=== PATIENT | female | born 1960 | race Caucasian/White ===

== ENCOUNTER 2023-12-09 02:10 | Observation (INO) | payer OTHER ==
--- OUTSIDE RECORDS SUMMARY | 2023-12-09 02:14 | XMS REPORT | Continuity of Care Document ---
Author Name Unknown Address [address] [facility] [address] [place] [address] [facility] thconnect Address [address] [facility] [place] [address] Care Team Providers Care Audograph Operator Name Role Phone PCP, PATIENT DOES NOT HAVE A Primary Care Physic maryam Unavailable BASIA LEMON Attending Clinician Unavailab ciro IRENE Attending Clinician Unavailable MD AME Attending Clinician Unavailab NOLBERTO Chung Attending Clinician Unavailable SAVAGE VERAS Attending Clinician Unavailable Savage Veras MD Attending Clinician [phone] BENNIE WINCHESTER Attending Clinician Unavailable Bennie Santillan Attending Clinician [phone] SAVAGE VERAS Admitting Clinician Unavailable BENNIE WINCHESTER Admitting Clinician Unavailable Payers Payer Name Policy Type Policy Number Effective Date Expirati on Date Source [employer] MP [address] ON/OFF 9 [id number] 2023 00:00:00 [employer] COMM[employer] OUT OF NETWORK [id number] 2022 00:00:00 Problems Condition Name Condition Details Condition Category Status Onset Date Resolution Date Last Treatment Date Treating Clinician Comments Source Encounter for screening for diabetes mellitus Encounter for screening for diabetes mellitus Disease Active 07-13 00:00: 00 Maria Isabel kohli Family history of hyperlipid emia Family history of hyperlipid emia Disease Active 07-13 00:00: 00 Maria Isabel kohli Family history of thyroid disease Family history of thyroid disease Disease Active 07-13 00:00: 00 Maria Isabel Radera kamilla Tobacco use disorder Tobacco use disorder Disease Active 06-12 00:00: 00 Maria Isabel kohli Persistent asthma with acute exacerbati on (HHS-HCC) Persistent asthma with acute exacerbati on (HHS-HCC) Disease Active 05-27 00:00: 00 Maria Isabel Radera kamilla COPD with acute exacerbati on (multi HCC) COPD with acute exacerbati on (multi HCC) Disease Active 05-27 00:00: 00 Maria Isabel Radera kamilla No known active problems No known active problems Disease [facility] Allergies, Adverse Reactions, Alerts Allergy Name Allergy Type Status Severity Reaction(s) Onset Date Inactive Date Treating Clinician Comments Source Azithrom ycin Dihydrat e Propensi ty to adverse reaction s Active Nausea and Vomiting 06-11 00:00: 00 Maria Isabel kohli NO KNOWN ALLERGIE S Drug Class Active [facility] Social History Social Habit Start Date Stop Date Quantity Comments Source Gender identity [facility] History of tobacco use Cigarette Smoker Maria Isabel bull - External Sexual orientation Elio Martinez - External Alcoholic beverage intake 2023-07-14 00:00:00 2023-07-14 00:00:00 Current drinker of alcohol (finding) Maria Isabel Martinez - External Alcohol intake 2023-06-13 00:00:00 2023-06-13 00:00:00 Current drinker of alcohol (finding) Maria Isabel Martinez - External Tobacco use and exposure 2023-06-12 00:00:00 2023-06-12 00:00:00 Smokeless tobacco non-user Maria Isabel Martinez - External History of Social function 2023-06-12 00:00:00 2023-06-12 00:00:00 Maria Isabel Martinez - External Sex assigned at 1960 00:00:00 1960 00:00:00 Maria Isabel Guerra Smoking Status Start Date Stop Date Source Tobacco smoking consumption unknown Maria Isabel Floresfidelina Mal[place] Smokes tobacco daily 2023-06-12 00:00:00 Maria Isabel fidelina Guerra Medications Ordered Medication Name Filled Medication Name Start Date Stop Date Current Medication? Ordering Clinician Indication Dosage Frequency Signature (SIG) Comments Components Source Beclomethas one Diprop (Qvar RediHaler) 40 MCG/ACT inhalation AEROSOL, BREATH ACTIVATED 07-13 00:00: 00 Yes 2{inhal ation} Inhale 2 Inhalation s into the lungs daily. Maria Isabel kohli Oxybutynin Chloride 10 MG oral TABLET SR 24 HR 07-13 00:00: 00 Yes [id number] 10mg Take 1 tablet (10 mg total) by mouth daily. Maria Isabel kohli Albuterol HFA 108 (90 Base) MCG/ACT IN AERS 06-12 00:00: 00 Yes [id number] 2{puff} Q.25D Inhale 2 puffs into the lungs every 6 hours as needed for wheezing. Maria Isabel kohli Benzonatate 200 MG oral Capsule 06-12 00:00: 00 Yes [id number] 200mg Q.[id number] 3D Take 1 capsule (200 mg total) by mouth 3 times daily as needed for cough. Maria Isabel kohli Albuterol (PROVENTIL) (2.5 MG/3ML) 0.083% inhalation Inhalant Solution 06-12 00:00: 00 07-13 04:59 :00 No [id number] 2.5mg Q.25D Take 2.5 mg by nebulizati on every 6 hours as needed for wheezing. Maria Isabel kohli predniSONE (DELTASONE) 10 MG oral tablet 06-12 00:00: 00 07-13 00:00 :00 No [id number] 10mg Take 1 tablet (10 mg total) by mouth daily Take 10 mg for 5 days then half tab 5 mg for 2 days. Please take with food.. Maria Isabel kohli Albuterol HFA 108 (90 Base) MCG/ACT IN AERS 05-27 00:00: 00 Yes [id number] 2{puff} Q.25D Inhale 2 puffs into the lungs every 6 hours as needed for wheezing. Maria Isabel kohli Benzonatate 200 MG oral Capsule 05-27 00:00: 00 Yes [id number] 200mg Q.[id number] 3D Take 1 capsule (200 mg total) by mouth 3 times daily as needed for cough. Maria Isabel kohli Beclomethas one Diprop (Qvar RediHaler) 40 MCG/ACT inhalation AEROSOL, BREATH ACTIVATED 05-27 00:00: 00 07-13 00:00 :00 No [id number] 2{inhal ation} Inhale 2 Inhalation s into the lungs daily. Maria Isabel kohli Albuterol (PROVENTIL) (2.5 MG/3ML) 0.083% inhalation Inhalant Solution 05-27 00:00: 00 06-27 04:59 :00 No [id number] 2.5mg Q.25D Take 2.5 mg by nebulizati on every 6 hours as needed for wheezing. Maria Isabel kohli Azithromyci n 250 MG oral Tablet 05-27 00:00: 00 06-02 04:59 :00 No [id number] If causing chest pain,Stop. Take 2 tablets by mouth on day 1 then 1 tablet by mouth daily for 4 days thereafter .. Maria Isabel kohli ipratropium -albuteroL (DUONEB) 0.5 mg-3 mg(2.5 mg base)/3 mL nebulizer solution 3 mL 11-20 06:30: 00 11-20 05:32 :00 No 3mL 3 mL, Inhalation , ONCE NOW, 1 dose, On Fri11/20/22 at 0130, [facility] cefTRIAXone (ROCEPHIN) 1,000 mg in NaCl 0.9% (NS) 100 mL MINI-BAG 11-20 04:15: 00 11-20 05:00 :00 No 1000mg 1,000 mg, IV Piggyback, ONCE, 1 dose, On Fri11/19/22 at 2315, Administer over 30 Minutes, 100 mL
Reas on for Anti-Infec tive: Empiric Therapy for Suspected Infection< br>Empiric Therapy Site: Respirator y
Durat ion of therapy: 72 hours [facility] methylpredn isolone sod succ (SOLU-MEDRO L) injection 125 mg 11-20 04:15: 00 11-20 03:26 :00 No 125mg 125 mg, Slow IV Push, ONCE, 1 dose, On Fri11/19/22 at 2315, STAT [facility] ipratropium -albuteroL (DUONEB) 0.5 mg-3 mg(2.5 mg base)/3 mL nebulizer solution 3 mL 11-20 03:15: 00 Yes 3mL 3 mL, Inhalation , QID, First dose on Fri11/19/22 at 2215, Until Discontinu ed, Routine [facility] acetaminoph en (TYLENOL) tablet 650 mg 11-20 03:15: 00 11-20 03:18 :00 No 650mg 650 mg, Oral, ONCE, 1 dose, On Fri11/19/22 at 2215, ZE [facility] nirmatrelvi r-ritonavir (PAXLOVID) 300 mg (150 mg x 2)-100 mg tablet 11-20 00:00: 00 Yes [id number] 3{tbl} Take 3 tablets by mouth in the morning and 3 tablets in the evening. [facility] ondansetron 4 mg disintegrat ing tablet 11-20 00:00: 00 Yes [id number] 4mg Take 1 tablet by mouth every 12 (twelve) hours as needed for Nausea and Vomiting (N/V). [facility] albuterol 90 mcg/actuati on inhaler 11-20 00:00: 00 Yes [id number] 2{puff} Inhale 2 Puffs every 4 (four) hours as needed for Wheezing or Shortness of Breath. [facility] Albuterol (PROVENTIL) (2.5 MG/3ML) 0.083% inhalation Inhalant Solution 11-20 00:00: 00 06-12 00:00 :00 No 2.5mg Q.25D Inhale 2.5 mg into the lungs every 6 hours as needed. Maria Isabel Martinez - Externa l levoFLOXaci n 500 mg tablet 11-20 00:00: 00 12-01 04:59 :00 No [id number] 500mg Take 1 tablet by mouth in the morning for 10 days. [facility] acetaminoph en-codeine 300-30 mg tablet 11-20 00:00: 00 11-28 04:59 :00 No [id number] 1{tbl} Take 1 tablet by mouth every 4 (four) hours as needed for Pain (scale 7-10) for up to 7 days. Indication s: acute pain [facility] predniSONE 20 mg tablet 11-20 00:00: 00 11-26 04:59 :00 No [id number] 20mg Take 1 tablet by mouth in the morning and 1 tablet in the evening. Do all this for 5 days. [facility] cephALEXin (KEFLEX) 500 mg capsule 03-15 00:00: 00 03-23 05:59 :00 No [id number] 500mg Take 1 capsule by mouth 2 (two) times daily for 7 days. [facility] Vital Signs Vital Name Observation Time Observation Value Comments S ource Respiratory rate 2023-07-14 15:17:00 16 /min Maria Isabel Martinez - External Body height 2023-07-14 15:17:00 160 cm Fauzia Martinez - External Body weight 2023-07-14 15:17:00 72.576 kg Fauzia Martinez - External BMI 2023-07-14 15:17:00 28.34 kg/m2 Fauzia Martinez - External Oxygen saturation in Arterial blood by Pulse oximetry 2023-07-14 15:17:00 98 /min Maria Isabel Seybo ld - External Systolic blood pressure 2023-07-14 15:17:00 100 mm[Hg] Maria Isabel Coheno ld - External Diastolic blood pressure 2023-07-14 15:17:00 60 mm[Hg] Maria Isabel Coheno ld - External Heart rate 2023-07-14 15:17:00 78 /min Danyse y Seybold - External Body temperature 2023-07-14 15:17:00 36.78 Charley Maria Isabel Floresybold - External Systolic blood pressure 2023-06-13 19:45:00 108 mm[Hg] Maria Isabel Coheno ld - External Diastolic blood pressure 2023-06-13 19:45:00 54 mm[Hg] Maria Isabel Coheno ld - External Heart rate 2023-06-13 19:45:00 77 /min Kimberly y ybold - External Body temperature 2023-06-13 19:45:00 36.83 Charley Maria Isabel Floresybold - External Respiratory rate 2023-06-13 19:45:00 20 /min Maria Isabel Cohenold - External Body height 2023-06-13 19:45:00 160 cm Fauzia veronica Seybold - External Body weight 2023-06-13 19:45:00 73.936 kg Fauzia ey Seybold - External BMI 2023-06-13 19:45:00 28.87 kg/m2 Fazuia veronica Seybold - External Oxygen saturation in Arterial blood by Pulse oximetry 2023-06-13 19:45:00 95 /min Maria Isabel Coheno ld - External Systolic blood pressure 2022-11-20 06:00:00 103 mm[Hg] [facility] Diastolic blood pressure 2022-11-20 06:00:00 66 mm[Hg] [facility] Heart rate 2022-11-20 06:00:00 74 /min [facility] Oxygen saturation in Arterial blood by Pulse oximetry 2022-11-20 06:00:00 91 /min [facility] Respiratory rate 2022-11-20 05:32:00 16 /min [facility] Body temperature 2022-11-20 02:57:00 37.5 Charley [facility] Body height 2022-11-20 02:57:00 157.5 cm [facility] Body weight 2022-11-20 02:57:00 72.303 kg [facility] BMI 2022-11-20 02:57:00 29.15 kg/m2 [facility] Systolic blood pressure 2021-03-16 00:04:00 122 mm[Hg] [facility] Diastolic blood pressure 2021-03-16 00:04:00 85 mm[Hg] [facility] Heart rate 2021-03-16 00:04:00 107 /min [facility] Body temperature 2021-03-16 00:04:00 36.56 Charley [facility] Respiratory rate 2021-03-16 00:04:00 18 /min [facility] Body weight 2021-03-16 00:04:00 68.04 kg [facility] Oxygen saturation in Arterial blood by Pulse oximetry 2021-03-16 00:04:00 99 /min [facility] Procedures Procedure Date / Time Performed Performing Clinicia n Source COMP. METABOLIC PANEL (32269) 2022-11-20 03:22:00 Savage Veras [facility] CBC WITH DIFF 2022-11-20 03:22:00 Savage Veras [facility] RAPID INFLUENZA A/B 2022-11-20 03:08:00 Savage Veras [facility] COVID-19 (ID NOW RAPID TESTING) 2022-11-20 03:08:00 Savage Veras [facility] NOTICE OF PRIVACY PRACTICES 2022-11-20 02:36:30 Doctor Unassigned, [facility] CONSENT/REFUSAL FOR DIAGNOSIS AND TREATMENT 2022-11-20 02:35:50 Doctor Unassigned, [facility] ED LACERATION REPAIR 2021-03-16 02:41:23 Narinder Winchester [facility] XR HAND <3 VW LEFT 2021-03-16 00:54:37 Bennie Winchester [facility] NOTICE OF PRIVACY PRACTICES 2021-03-15 23:53:15 Doctor Unassigned, [facility] Encounters Start Date/Time End Date/Time Encounter Type Admission Type Attending [facility] Care Department Encounter ID Source 2023-12-05 00:00:00 2023-12-05 00:00:00 Outpatient BASIA LEMONDAVID MATHEWS [id number] Maria Isabel [facility] 2023-09-28 00:00:00 2023-09-28 00:00:00 Outpatient BASIA LEMON MARIA ISABEL MATHEWS [id number] Maria Isabel [facility] 2023-08-26 00:00:00 2023-08-26 00:00:00 Outpatient BASIA LEMON MARIA ISABEL MATHEWS [id number] Maria Isabel [facility] 2023-08-19 09:00:00 2023-08-19 09:00:00 Outpatient TETO MARIA ISABEL MATHEWS [id number] Maria Isabel [facility] 2023-08-05 00:00:00 2023-08-05 00:00:00 Outpatient BASIA LEMON MARIA ISABEL MATHEWS [id number] Maria Isabel [facility] 2023-07-16 00:00:00 2023-07-16 00:00:00 Outpatient MD MARIA ISABEL LINCOLN [id number] Maria Isabel [facility] 2023-07-14 10:30:00 2023-07-14 10:30:00 Outpatient BASIA LEMON MARIA ISABEL MATHEWS [id number] Maria Isabel [facility] 2023-07-14 00:00:00 2023-07-14 00:00:00 Outpatient MARIA ISABEL MATHEWS [id number] Maria Isabel [facility] 2023-06-13 15:00:00 2023-06-13 15:00:00 Outpatient BASIA LEMON MARIA ISABEL MATHEWS [id number] Maria Isabel [facility] 2023-06-13 00:00:00 2023-06-13 00:00:00 Outpatient MARIA ISABEL MATHEWS [id number] Maria Isabel [facility] 2023-05-28 09:30:00 2023-05-28 09:30:00 Outpatient NOLBERTO DUBOIS [id number] [facility] 2022-11-19 22:00:00 2022-11-20 01:30:00 Emergency X SAVAGE VERAS [facility] [id number] [facility] 2022-11-19 22:00:00 2022-11-20 01:30:00 Emergency Savage Veras [facility] [id number] [facility] 2021-03-15 18:06:00 2021-03-15 21:02:00 Emergency X BENNIE WINCHESTER [facility] ERT [id number] [facility] 2021-03-15 18:06:00 2021-03-15 21:02:00 Emergency Bennie Winchester B [facility] [id number] [facility] Results Test Description Test Time Test Comments Results Result Co mments Source [facility] WITH [id number] 03:55:08* Test Item Value Reference Range Interpretation Comme nts WBC (test code = 6690-2) 4.96 See_Comment [Automated messa ge] The system which generated this result transmitted reference range: 4.30 - 11.10 10*3/?L. The reference range was not used to interpret this result as normal/abnormal. RBC (test code = 789-8) 4.86 See_Comment [Automated messa ge] The system which generated this result transmitted reference range: 3.93 - 5.25 10*6/?L. The reference range was not used to interpret this result as normal/abnormal. HGB (test code = 718-7) 15.4 g/dL 11.6-15.0 H HCT (test code = 4544-3) 44.4 % 35.7-45.2 MCV (test code = 787-2) 91.4 fL 80.6-95.5 MCH (test code = 785-6) 31.7 pg 25.9-32.8 MCHC (test code = 786-4) 34.7 g/dL 31.6-35.1 RDW-SD (test code = 89694-0) 42.2 fL 39.0-49.9 RDW-CV (test code = 788-0) 12.8 % 12.0-15.5 PLT (test code = 777-3) 130 See_Comment L [Automated WellnessFXa ge] The system which generated this result transmitted reference range: 166 - 358 10*3/?L. The reference range was not used to interpret this result as normal/abnormal. MPV (test code = 44125-1) 10.1 fL 9.5-12.9 IPF % (test code = 6964233179) 3.3 % 1.3-7.7 Platelet count measured by fluorescence method. NRBC/100 WBC (test code = 5324521425) 0.0 See_Comment [Automated Amorelie ssage] The system which generated this result transmitted reference range: 0.0 - 10.0 /100 WBCs. The reference range was not used to interpret this result as normal/abnormal. NRBC x10^3 (test code = 8527521371) See_Comment [Automated WellnessFXa ge] The system which generated this result transmitted reference range: 10*3/?L. The reference range was not used to interpret this result as normal/abnormal. GRAN MAT (NEUT) % (test code = 770-8) 60.7 % IMM GRAN % (test code = 9201220636) 0.20 % LYMPH % (test code = 736-9) 24.8 % MONO % (test code = 5905-5) 12.3 % EOS % (test code = 713-8) 1.6 % BASO % (test code = 706-2) 0.4 % GRAN MAT x10^3(ANC) (test code = 2465157111) 3.01 10*3/uL 1.88-7.09 IMM GRAN x10^3 (test code = 7794392986) 0.00-0.06 LYMPH x10^3 (test code = 731-0) 1.23 10*3/uL 1.32-3.29 L MONO x10^3 (test code = 742-7) 0.61 10*3/uL 0.33-0.92 EOS x10^3 (test code = 711-2) 0.08 10*3/uL 0.03-0.39 BASO x10^3 (test code = 704-7) 0.01-0.07 Lab Interpretation (test code = 84693-6) Abnormal [facility] Notes Date/Time Note Provider Source 2023-07-14 10:22:37 Chief Complaint Patient presents with Physical Patient is not fasting for labs Kika Dorman LVN [facility] 2022-11-20 01:20:00 Formatting of this n ote might be different from the original. Pt given printed and verbal discharge instructions regarding sob, covid 19, encouraged hydration, Prescriptions provided Discussed ibuprofen and to take with food to avoid GI distress. Discussed antibiotic therapy and to take until all completed unless adverse reaction occurs - if occurs, discontinue medication and follow up with pcp/seek medical attention Pt verbalized understanding of instructions, pt awake alert oriented, resp reg unlabored, skin w/d, color appropriate for race, moves all ext well,pt encouraged to follow up with pcp. Advised to seek medical attention for new/prolonged/worsening of symptoms. Monitoring of O2 levels and reason to return to ED. No adverse reaction to meds given in ER noted upon discharge PIV d'cd, dressing to site, catheter in tact. Awake, alert oriented, resp reg unlabored, skin w/d, pt leaving amb with steady gait, in no apparent distress. [facility] 2022-11-19 21:55:34 Formatting of this n ote might be different from the original. Pt arrived ambulatory with complaints of cough, fever, and SOB since last Friday. Pt has been taking Motrin and Robitussin, last motrin 2.5 hrs ago. Pt used her last albuterol inhaler and nebulizer treatment today. Pt moved to FT 2 and placed on 2L NC. Hx: Asthma Valentine Shankar RN [facility] 2022-11-19 21:35:00 Formatting of this n ote is different from the original. [facility] Emergency Department Note Patient Name: Ana Zamora Date of : 1960 61 year old female [id number] Primary Care Physician: PATIENT DOES NOT HAVE A PCP Patient Escorted by: Self [9] Mode of Arrival: Personal means [1] EMS Treatment Prior to ED Arrival: [facility] treatment: Antipyretic Travel and Exposure Screening: Symptoms Does patient have any of these symptoms?: (not recorded) Exposure Screening Has patient had contact with someone with a communicable disease in the last month?: (not recorded) Diseases exposed to:: (not recorded) Is Patient ?: (not recorded) Exposure Date: (not recorded) Chief Complaint: Chief Complaint Patient presents with Cough Fever Shortness of Breath History of Present Illness: 61 y.o. female with c/o cough, congestion, fever/chills x 2-3 days. Past Medical History/Immunizations: No past medical history on file. Tetanus received in last 5 years: Unknown Allergies: No Known Allergies Past Social History: Substance & Sexual Activity No substance use or sexual activity history on file. Past Surgical History: No past surgical history on file. Review of Systems: Review of Systems Constitutional: Positive for chills, fatigue and fever. HENT: Positive for congestion and rhinorrhea. Eyes: Negative. Respiratory: Positive for cough and shortness of breath. Cardiovascular: Negative. Genitourinary: Negative. Musculoskeletal: Negative. Skin: Negative. Neurological: Negative. Psychiatric/Behavioral: Negative. Endocrine: Endocrine negative Physical Exam: ED Triage Vitals [11/19/227] Weight 72.3 kg (159 lb 6.4 oz) Actual or estimated Actual Height 1.575 m (5' 2") BP 138/79 Pulse 81 Resp 22 Temp 37.5 ?C (99.5 ?F) Temp source Oral SpO2 90 % Measured on Room air Physical Exam Vitals and nursing note reviewed. Constitutional: General: She is not in acute distress. Appearance: Normal appearance. She is not ill-appearing. HENT: Head: Normocephalic and atraumatic. Nose: Congestion and rhinorrhea present. Mouth/Throat: Mouth: Mucous membranes are moist. Eyes: Pupils: Pupils are equal, round, and reactive to light. Cardiovascular: Rate and Rhythm: Normal rate. Pulses: Normal pulses. Pulmonary: Effort: Pulmonary effort is normal. No respiratory distress. Breath sounds: No stridor. Wheezing present. No rhonchi. Chest: Chest wall: No tenderness. Musculoskeletal: General: Normal range of motion. Skin: General: Skin is warm. Capillary Refill: Capillary refill takes less than 2 seconds. Neurological: General: No focal deficit present. Mental Status: She is alert and oriented to person, place, and time. Psychiatric: Mood and Affect: Mood normal. Behavior: Behavior normal. Radiology: XR CHEST 1 VW Preliminary Result EXAM: XR CHEST 1 VW HISTORY: 61 years-old Female; Provided indication: sob . History obtained from [facility]: "cough, fever, and SOB since last Friday" TECHNIQUE: Single frontal view of the chest. COMPARISON: None FINDINGS: The lung volumes are increased and the diaphragms are flattened. No focal consolidation or pleural abnormality is visualized. Subtle interstitial opacities and peribronchial cuffing are present. The cardiomediastinal silhouette is normal in size accounting for technique. No acute osseous abnormality. IMPRESSION Findings are suggestive of reactive airway disease exacerbation or a viral lower respiratory tract infection. Preliminary Report Dictated by Resident: Johnathan Jones Lab Results: Lab Results CBC WITH DIFF - Abnormal Result Value Ref Range WBC 4.96 4.30 - 11.10 10*3/?L RBC 4.86 3.93 - 5.25 10*6/?L HGB 15.4 (*) 11.6 - 15.0 g/dL HCT 44.4 35.7 - 45.2 % MCV 91.4 80.6 - 95.5 fL MCH 31.7 25.9 - 32.8 pg MCHC 34.7 31.6 - 35.1 g/dL RDW-SD 42.2 39.0 - 49.9 fL RDW-CV 12.8 12.0 - 15.5 % PLT 130 (*) 166 - 358 10*3/?L MPV 10.1 9.5 - 12.9 fL IPF % 3.3 1.3 - 7.7 % NRBC/100 WBC 0.0 0.0 - 10.0 /100 WBCs NRBC x10^3 <0.01 10*3/?L GRAN MAT (NEUT) % 60.7 % IMM GRAN % 0.20 % LYMPH % 24.8 % MONO % 12.3 % EOS % 1.6 % BASO % 0.4 % GRAN MAT x10^3(ANC) 3.01 1.88 - 7.09 10*3/uL IMM GRAN x10^3 <0.03 0.00 - 0.06 10*3/uL LYMPH x10^3 1.23 (*) 1.32 - 3.29 10*3/uL MONO x10^3 0.61 0.33 - 0.92 10*3/uL EOS x10^3 0.08 0.03 - 0.39 10*3/uL BASO x10^3 <0.03 0.01 - 0.07 10*3/uL COMP. METABOLIC PANEL (50711) - Abnormal NA 138 135 - 145 mmol/L K 3.6 3.5 - 5.0 mmol/L CL 103 98 - 108 mmol/L CO2 TOTAL 29 23 - 31 mmol/L AGAP 6 2 - 16 BUN 14 7 - 23 mg/dL GLUCOSE 111 (*) 70 - 110 mg/dL CREATININE 0.67 0.50 - 1.04 mg/dL TOTAL BILI 0.4 0.1 - 1.1 mg/dL CALCIUM 9.1 8.6 - 10.6 mg/dL T PROTEIN 6.6 6.3 - 8.2 g/dL ALBUMIN 3.9 3.5 - 5.0 g/dL ALK PHOS 73 34 - 122 U/L ALTv 111 (*) 5 - 35 U/L AST(SGOT) 73 (*) 13 - 40 U/L eGFR 88.9 mL/min/1.73m2 COVID-19 (ID NOW RAPID TESTING) - Abnormal SARS-CoV-2 Rapid ID NOW Positive (*) Not Detected RAPID INFLUENZA A/B - Normal Rapid Influenza A Negative Negative Rapid Influenza B Negative Negative EKG: If EKG completed, see Procedure Note. Orders and Treatments: Orders Placed This Encounter Procedures XR CHEST 1 VW RAPID INFLUENZA A/B CBC WITH DIFF COMP. METABOLIC PANEL (55797) COVID-19 (ID NOW TESTING) LAB ONLY COVID INTERPRETATION Orders Placed This Encounter Medications ipratropium-albuteroL (DUONEB) 0.5 mg-3 mg(2.5 mg base)/3 mL nebulizer solution 3 mL methylprednisolone sod succ (SOLU-MEDROL) injection 125 mg acetaminophen (TYLENOL) tablet 650 mg cefTRIAXone (ROCEPHIN) 1,000 mg in NaCl 0.9% (NS) 100 mL MINI-BAG ipratropium-albuteroL (DUONEB) 0.5 mg-3 mg(2.5 mg base)/3 mL nebulizer solution 3 mL First Provider Eval: ED Events None No notes of EC Admission Criteria type on file. ED COURSE Diagnosis/Impression as of 11/20/22 0100 SOB (shortness of breath) Bronchitis COVID-19 Procedures: Procedures MDM: Medical Decision Making Amount and/or Complexity of Data Reviewed Labs: ordered. Radiology: ordered. Risk OTC drugs. Prescription drug management. A) Covid-19 Infection, Bronchitis Disposition/Condition: Home, Paxlovid, Levaquin, Prednisone, Neb refills, ER warnings, f/u PCP in 2-3 days. Zofran prn ED Disposition None Discharge Medications: Patient's Medications No medications on file Follow-up: PCP Electronically signed by: Savage Veras MD 11/20/22 005 Savage Veras MD 11/20/22 0102 [facility]
[2023-12-09] MEDS ORDERED: ONDANSETRON 4 MG/2 ML VIAL ONE (03:07)
[2023-12-09] MEDS ORDERED: NA CHLORIDE 0.9% 1,000 ML ONE ×2 (03:07→07:27)
[2023-12-09 03:29] LABS: Absolute Eosinophils 0.1 K/uL (0-0.5); Absolute Lymphocytes (CBC) 1.5 K/uL (0.7-4.9); Absolute Monocytes 1.2 K/uL (0.1-1.3); Absolute Neutrophil 9.2 K/uL (1.8-8.0); Basophils % 0.2 % (0-1.3); Eosinophils % 0.9 % (0-4.4); Hemoglobin 14.2 g/dL (12.0-15.0); Lymphocytes % 12.4 % (15.3-44.8); MCH 31.4 pg (27.0-35.0); MCHC 33.8 g/dL (32.0-36.0); MCV 92.8 fL (80-100); MPV 7.6 fL (7.6-11.3); Neutrophils % 76.5 % (41.7-73.7); Nucleated Red Blood Cells % 0.1 % (0-0); Platelets 241 thou/uL (152-406); RBC Red Blood Cell Count 4.53 M/uL (3.86-4.86); Red Cell Distribution Width 13.1 % (12.1-15.2)
[2023-12-09] MEDS ORDERED: ALBUTEROL 2.5 MG/3 ML NEB SOL ONE (03:30)
[2023-12-09] MEDS ORDERED: IPRATROPIUM BROM 0.5MG/2.5ML ONE (03:30)
[2023-12-09 03:33] LABS: Sqamous Epithelial <5 /HPF (None Seen); Urine Bacteria None Seen /HPF (<20); Urine Bilirubin NEGATIVE (Negative); Urine Blood 1+ (Negative); Urine Clarity Clear (Clear); Urine Color Yellow (Yellow); Urine Culture Reflex Order NOT NEEDED; Urine Glucose NEGATIVE (Negative); Urine Ketones NEGATIVE (Negative); Urine Microscopic Reflex YN ORDER UMIC; Urine Mucus 1+ /HPF (None Seen); Urine Nitrite NEGATIVE (Negative); Urine Protein TRACE (Negative); Urine RBC None Seen /HPF (None Seen); Urine Urobilinogen Normal (Normal); Urine WBC <5 /HPF (<5); Urine pH 5.5 (5.0-7.0)
[2023-12-09 03:37] LABS: Albumin 3.4 g/dL (3.4-5.0); Anion Gap 7.3 mEq/L (5.0-15.0); Bilirubin Total 0.6 mg/dL (0.2-1.0); Globulin 3.4 g/dL (2.3-3.5); Potassium 3.3 mEq/L (3.5-5.1); Protein, Total 6.8 g/dL (6.4-8.2)
--- NOTE | 2023-12-09 06:52 | RAD REPORT ---
EXAM: CT Abdomen and Pelvis With Intravenous Contrast CLINICAL HISTORY: The patient is 62 years old and is Female; Abdomen pain. TECHNIQUE: Axial computed tomography images of the abdomen and pelvis with intravenous contrast. Sagittal and coronal reformatted images were created and reviewed. This CT exam was performed using one or more of the following dose reduction techniques: automated exposure control, adjustmen t of the mA and/or kV according to patient size, and/or use of iterative reconstruction technique. COMPARISON: No relevant prior studies available. FINDINGS: Lung bases: Unremarkable. No mass. No consolidation. ABDOMEN: Liver: Unremarkable. No mass. Gallbladder and bile ducts: Cholecystectomy without biliary dilatation. Pancreas: No findings to suggest acute pancreatitis. No mass visualized. No ductal dilation. Spleen: Unremarkable. No splenomegaly. Adrenals: Unremarkable. No mass. Kidneys and ureters: Unremarkable. No solid mass. No hydronephrosis. Stomach and bowel: Diffuse colon wall thickening/edema consistent with colitis. No small bowel dilatation or obstruction. No gastric wall thickening. PELVIS: Appendix: No findings to suggest acute appendicitis. Bladder: Unremarkable. No mass. Reproductive: Unremarkable as visualized. ABDOMEN and PELVIS: Intraperitoneal space: Unremarkable. No free air. No significant fluid collection. Bones/joints: Degenerative changes in the spine. No acute fracture visualized. No dislocation. Soft tissues: Unremarkable. Vasculature: Unremarkable. No abdominal aortic aneurysm. Lymph nodes: No pathologically enlarged lymph nodes. IMPRESSION: Diffuse colon wall thickening/edema consistent with colitis. Electronically signed by: Zaria Cedeno MD 12/09/2023 06:48 AM CDT ND Due to temporary technical issues with the PACS/[employer] reporting system, reports are being diana d by the in-house radiologist without review as a courtesy to ensure prompt reporting the interpreting radiologist is fully responsible for the content of the report. Transcribed Date/Time: 12/09/2023 6:52 AM
--- NOTE | 2023-12-09 07:00 | ER ---
Nurse's Notes [facility] Name: Ana Zamora Age: 62 yrs Sex: Female : 1960 Arrival Date: 12/09/2023 Time: 02:10 Bed 8 Private MD: Diagnosis: Colitis;Sepsis Presentation: 12/08 02:49 Chief complaint: Patient states: N/V diarrhea x 3 days also reports headache and kl weakness. Coronavirus screen: Vaccine status: Patient reports being unvaccinated. Ebola Screen: Patient negative for fever greater than or equal to 101.5 degrees Fahrenheit, and additional compatible Ebola Virus Disease symptoms. Risk Assessment: Do you want to hurt yourself or someone else? Patient reports no desire to harm self or others. Onset of symptoms was December 05, 2023. 02:49 Method Of Arrival: Ambulatory kl 02:49 Acuity: KULDIP 3 kl Triage Assessment: 02:51 General: Appears uncomfortable, Behavior is calm, cooperative. Pain: Complains of pain kl in abdomen Pain currently is 10 out of 10 on a pain scale. GI: Reports lower abdominal pain, upper abdominal pain, diarrhea, intolerance of fluids, intolerance of food, nausea, vomiting. Historical: - Allergies: 02:50 Codeine; kl - Home Meds: 02:50 Albuterol Inhl [Active]; kl - PMHx: 02:50 Asthma; kl - PSHx: 02:56 Appendectomy; Cholecystectomy; kl - Immunization history:: Adult Immunizations not up to date. - Infectious Disease History:: Denies. - Social history:: Smoking status: Patient reports the use of cigarette tobacco products, smokes one-half pack cigarettes per day. - Family history:: not pertinent. Screenin:10 [facility] ED Fall Risk Assessment (Adult) History of falling in the last 3 months, lg3 including since admission No falls in past 3 months (0 pts) Confusion or Disorientation No (0 pts) Intoxicated or Sedated No (0 pts) Impaired Gait No (0 pts) Mobility Assist Device Used No (0 pt) Altered Elimination No (0 pt) Score/Fall Risk Level 0 - 2 = Low Risk Oriented to surroundings, Maintained a safe environment, Educated pt \T\ family on fall prevention, incl call for assistance when getting out of bed, Assessed \T\ reinforced patient's understanding of fall precautions. Abuse screen: Denies threats or abuse. Denies injuries from another. Nutritional screening: No deficits noted. Tuberculosis screening: No symptoms or risk factors identified. Assessment: 03:10 General: Appears in no apparent distress. comfortable, Behavior is calm, cooperative. lg3 Pain: Complains of pain in head and abdomen. Neuro: No deficits noted. [place] Agitation-Sedation Scale (RASS): 0 - Alert and Calm Level of Consciousness is awake, alert, obeys commands, Oriented to person, place, time, situation, Reports headache. Cardiovascular: No deficits noted. Denies chest pain, shortness of breath, Capillary refill < 3 seconds Clubbing of nail beds is absent JVD is absent Patient's skin is warm and dry. Respiratory: No deficits noted. Airway is patent Respiratory effort is even, unlabored, Respiratory pattern is regular, symmetrical. GI: Abdomen is round non-distended, obese, Reports lower abdominal pain, upper abdominal pain, cramping, diarrhea, nausea, vomiting. : No deficits noted. No signs and/or symptoms were reported regarding the genitourinary system. EENT: No deficits noted. No signs and/or symptoms were reported regarding the EENT system. Derm: No deficits noted. No signs and/or symptoms reported regarding the dermatologic system. Skin is intact, is healthy with good turgor, Skin is dry, Skin is normal, Skin temperature is warm. Musculoskeletal: No deficits noted. No signs and/or symptoms reported regarding the musculoskeletal system. Circulation, motion, and sensation intact. Range of motion: intact in all extremities. 04:48 Reassessment: Patient appears in no apparent distress at this time. No changes from lg3 previously documented assessment. Patient and/or family updated on plan of care and expected duration. Pain level reassessed. Patient is alert, oriented x 3, equal unlabored respirations, skin warm/dry/pink. 05:27 Reassessment: pt is having long moments of sleep apnea, O2 saturation drops to low 80. bm8 This nurse woke pt up and O2 sat recovered to low 90's, pt placed on 2L NC and O2 saturation is holding steady at 92%, provider notified. 07:45 Reassessment: Patient appears in no apparent distress at this time. Patient and/or ph family updated on plan of care and expected duration. Pain level reassessed. Patient is alert, oriented x 3, equal unlabored respirations, skin warm/dry/pink. Vital Signs: 02:49 Temp 99.2(O); Pain 10/10; kl 02:55 BP 113 / 73; Pulse 105; Resp 22; Pulse Ox 92% ; kl 02:57 Weight 67.59 kg (R); Height 5 ft. 1 in. ; kl 03:20 Pulse Ox 73% on R/A; lg3 03:31 Pulse Ox 98% on 3 lpm NC; lg3 05:36 BP 98 / 45; Pulse 94; Resp 19 S; Pulse Ox 96% on R/A; lg3 07:00 BP 103 / 62; Pulse 102; Resp 18; Pulse Ox 98% on 3 lpm NC; ph 08:53 BP 113 / 70; Pulse 92; Resp 18; Pulse Ox 97% on 3 lpm NC; ph 09:43 BP 99 / 54; Pulse 88; Resp 18; Pulse Ox 98% on 2 lpm NC; ph 02:57 Body Mass Index 28.15 (67.59 kg, 154.94 cm) kl 02:49 Pain Scale: Adult kl ED Course: 02:12 Patient arrived in ED. gm2 02:13 You Andrade MD is Attending Physician. rt 02:50 Triage completed. kl 03:00 April Sy RN is Primary Nurse. lg3 03:10 Patient has correct armband on for positive identification. Placed in gown. Bed in low lg3 position. Call light in reach. Side rails up X 1. Client placed on continuous cardiac and pulse oximetry monitoring. NIBP monitoring applied. Door closed. Noise minimized. Warm blanket given. Pillow given. 03:10 Initial lab(s) drawn, by me, sent to lab. Urine collected: clean catch specimen, clear. lg3 Inserted saline lock: 20 gauge in right antecubital area, using aseptic technique. Blood collected. 03:12 CBC with Diff Sent. lg3 03:12 CMP Sent. lg3 03:12 Lipase Sent. lg3 03:12 Urinalysis w/ reflexes Sent. lg3 03:25 Oxygen administration via nasal cannula \T\ 3L/min. lg3 04:15 CT Abd/Pelvis - IV Contrast Only In Process Unspecified. EDMS 06:58 Fahad Harp is Hospitalizing Provider. rt 07:15 Report given to GURU GARCIA. bm8 07:19 EKG done, by ED staff, reviewed by You Andrade MD. lg3 08:36 Arm band placed on Patient placed in an exam room, on a stretcher, on protective signal installer, ph on pulse oximetry. 09:45 No provider procedures requiring assistance completed. Patient admitted, IV remains in ph place. Administered Medications: 03:12 Drug: NS 0.9% IV 1000 ml IV at 1 bolus Per protocol; 1000 mL bolus Route: IV; Rate: 1 lg3 bolus; Site: right antecubital; 05:37 Follow up: Response: No adverse reaction; IV Status: Completed infusion; IV Intake: lg3 1000ml 03:12 Drug: Ondansetron IVP 4 mg IVP once; over 2 minutes Route: IVP; Site: right antecubital;lg3 05:37 Follow up: Response: No adverse reaction; Marked relief of symptoms; Nausea is decreasedlg3 03:32 Drug: DuoNeb Nebulize (3:1) (2.5 mg - 0.5 mg) 3 ml Nebulizer once Route: Nebulizer; lg3 05:37 Follow up: Response: No adverse reaction; Marked relief of symptoms lg3 08:53 Drug: Piperacillin-Tazobactam IVPB 3.375 grams IVPB once over 60 mins; (mix in NS 100 ph mL) Route: IVPB; Infused Over: 60 mins; Site: right antecubital; 10:00 Follow up: Response: No adverse reaction; IV Status: Completed infusion ph 08:53 Drug: NS 0.9% IV 1000 ml IV at 1 bolus Per protocol; 1000 mL bolus Route: IV; Rate: 1 ph bolus; Site: right antecubital; 10:00 Follow up: Response: No adverse reaction; IV Status: Completed infusion; IV Intake: ph 1000ml Medication: 08:36 VIS not applicable for this client. ph Intake: 05:37 IV: 1000ml; Total: 1000ml. lg3 10:00 IV: 1000ml; Total: 2000ml. ph Outcome: 07:00 Decision to Hospitalize by Provider. rt 09:45 Admitted to ER Hold. Please see [facility] for further documentation. ph 09:45 Condition: stable 09:45 Instructed on the need for admit, 16:25 Patient left the ED. ph Signatures: Dispatcher Adstrix EDMatilde Roy, RN RN Apurva Liang RN RN ph Able, GURU Chen RN lg3 You Andrade MD MD rt [place] 2 Arun Ibanez RN RN bm8 Corrections: (The following items were deleted from the chart) 05:42 05:36 BP 109 / 67; Pulse 94bpm; Resp 19bpm; Spontaneous; Pulse Ox 97% RA; lg3 lg3 07:25 07:23 Report given to GURU GARCIA ph ph
--- NOTE | 2023-12-09 07:00 | EDPHYS ---
Physician Documentation [facility] Name: Ana Zamora Age: 62 yrs Sex: Female : 1960 Arrival Date: 12/09/2023 Time: 02:10 Bed 8 Private MD: ED Physician You Andrade HPI: 12/08 03:19 This 62 yrs old Female presents to ER via Ambulatory with complaints of rt Nausea/Vomiting/Diarrhea, Headache, Weakness. 03:19 Patient presents to the ED with 3 days of intermittent nausea, vomiting, diarrhea. She rt states that when these occur, she has significant stabbing abdominal pain. Yesterday, patient subsequently developed a headache but states that she has not really been able to keep anything down by mouth. The patient denies other acute complaints at this time, symptoms are moderate in severity, no other aggravating or alleviating factors.. Historical: - Allergies: 02:50 Codeine; kl - Home Meds: 02:50 Albuterol Inhl [Active]; kl - PMHx: 02:50 Asthma; kl - PSHx: 02:56 Appendectomy; Cholecystectomy; kl - Immunization history:: Adult Immunizations not up to date. - Infectious Disease History:: Denies. - Social history:: Smoking status: Patient reports the use of cigarette tobacco products, smokes one-half pack cigarettes per day. - Family history:: not pertinent. ROS: 03:19 Constitutional: Negative for fever, chills, and weight loss, Cardiovascular: Negative rt for chest pain, palpitations, and edema, Respiratory: Negative for shortness of breath, cough, wheezing, and pleuritic chest pain, MS/Extremity: Negative for injury and deformity, Skin: Negative for injury, rash, and discoloration, Neuro: Negative for headache, weakness, numbness, tingling, and seizure, 03:19 Abdomen/GI: Positive for abdominal pain, nausea, vomiting, and diarrhea, 03:19 Neuro: Positive for headache, Negative for loss of consciousness, Exam: 03:19 Constitutional: This is a well developed, well nourished patient who is awake, alert, rt and in no acute distress. Head/Face: Normocephalic, atraumatic. Chest/axilla: Normal chest wall appearance and motion. Nontender with no deformity. No lesions are appreciated. Cardiovascular: Regular rate and rhythm with a normal S1 and S2. No gallops, murmurs, or rubs. Normal PMI, no JVD. No pulse deficits. Respiratory: Lungs have equal breath sounds bilaterally, clear to auscultation and percussion. No rales, rhonchi or wheezes noted. No increased work of breathing, no retractions or nasal flaring. Abdomen/GI: Soft, non-tender, with normal bowel sounds. No distension or tympany. No guarding or rebound. No evidence of tenderness throughout. Skin: Warm, dry with normal turgor. Normal color with no rashes, no lesions, and no evidence of cellulitis. MS/ Extremity: Pulses equal, no cyanosis. Neurovascular intact. Full, normal range of motion. Neuro: Awake and alert, GCS 15, oriented to person, place, time, and situation. Cranial nerves II-XII grossly intact. Motor strength 5/5 in all extremities. Sensory grossly intact. Cerebellar exam normal. Normal gait. Vital Signs: 02:49 Temp 99.2(O); Pain 10/10; kl 02:55 BP 113 / 73; Pulse 105; Resp 22; Pulse Ox 92% ; kl 02:57 Weight 67.59 kg (R); Height 5 ft. 1 in. ; kl 03:20 Pulse Ox 73% on R/A; lg3 03:31 Pulse Ox 98% on 3 lpm NC; lg3 05:36 BP 98 / 45; Pulse 94; Resp 19 S; Pulse Ox 96% on R/A; lg3 07:00 BP 103 / 62; Pulse 102; Resp 18; Pulse Ox 98% on 3 lpm NC; ph 08:53 BP 113 / 70; Pulse 92; Resp 18; Pulse Ox 97% on 3 lpm NC; ph 09:43 BP 99 / 54; Pulse 88; Resp 18; Pulse Ox 98% on 2 lpm NC; ph 02:57 Body Mass Index 28.15 (67.59 kg, 154.94 cm) kl 02:49 Pain Scale: Adult kl MDM: 02:48 Patient medically screened. rt 07:02 Differential diagnosis: Viral gastroenteritis, colitis. Data reviewed: vital signs, rt nurses notes, lab test result(s), radiologic studies. Consideration of Admission/Observation Patient was admitted/placed on observation. Management of patient was discussed with the following: Hospitalist: Agrees to admit. I considered the following discharge prescriptions or medication management in the emergency department Medications were administered in the Emergency Department. See MAR. Care significantly affected by the following chronic conditions: Asthma. Counseling: I had a detailed discussion with the patient and/or guardian regarding the historical points, exam findings, and any diagnostic results supporting the discharge/admit diagnosis, lab results, radiology results, the need for further work-up and treatment in the hospital. Response to treatment: There is no appreciated change of the patient's symptoms at this time. ED course: Patient's initial presentation was thought to be due to a viral syndrome, once bacterial etiology, colitis, was identified via CT scan, blood cultures were drawn, IV fluids, IV antibiotics were given and patient will be admitted for further care.. 12/08 02:58 Order name: CBC with Diff; Complete Time: 03:39 rt 12/08 02:58 Order name: CMP; Complete Time: 03:39 rt 12/08 02:58 Order name: Lipase; Complete Time: 03:39 rt 12/08 02:58 Order name: Urinalysis w/ reflexes; Complete Time: 03:39 rt 12/08 06:58 Order name: Blood Culture Adult (2) rt 12/08 06:58 Order name: Lactate w/ 2H reflex if indic. rt 12/08 06:58 Order name: Protime (+inr) rt 12/08 06:58 Order name: Ptt, Activated rt 12/08 08:52 Order name: Magnesium EDMS 12/08 08:52 Order name: Basic Metabolic Panel EDMS 12/08 08:52 Order name: Basic Metabolic Panel EDMS 12/08 08:52 Order name: CBC with Automated Diff EDMS 12/08 08:52 Order name: CBC with Automated Diff EDMS 12/08 08:52 Order name: Lipid Profile EDMS 12/08 08:52 Order name: Lipid Profile EDMS 12/08 08:52 Order name: Magnesium EDMS 12/08 08:52 Order name: Magnesium EDMS 12/08 08:52 Order name: Phosphorus EDMS 12/08 08:52 Order name: Phosphorus EDMS 12/08 08:54 Order name: C.difficile GDH Ag EDMS 12/08 02:58 Order name: CT Abd/Pelvis - IV Contrast Only rt 12/08 02:58 Order name: IV Saline Lock; Complete Time: 03:12 rt 12/08 02:58 Order name: Labs collected and sent; Complete Time: 03:12 rt 12/08 06:58 Order name: Accucheck; Complete Time: 07:23 rt 12/08 06:58 Order name: Cardiac monitoring; Complete Time: 07:20 rt 12/08 06:58 Order name: EKG - Nurse/Tech; Complete Time: 07:20 rt 12/08 06:58 Order name: IV Saline Lock - Large Bore; Complete Time: 07:20 rt 12/08 06:58 Order name: O2 Per Protocol; Complete Time: 07:20 rt 12/08 06:58 Order name: O2 Sat Monitoring; Complete Time: 07:20 rt 12/08 06:58 Order name: Vital Signs; Complete Time: 07:20 rt Administered Medications: 03:12 Drug: NS 0.9% IV 1000 ml IV at 1 bolus Per protocol; 1000 mL bolus Route: IV; Rate: 1 lg3 bolus; Site: right antecubital; 05:37 Follow up: Response: No adverse reaction; IV Status: Completed infusion; IV Intake: lg3 1000ml 03:12 Drug: Ondansetron IVP 4 mg IVP once; over 2 minutes Route: IVP; Site: right antecubital;lg3 05:37 Follow up: Response: No adverse reaction; Marked relief of symptoms; Nausea is decreasedlg3 03:32 Drug: DuoNeb Nebulize (3:1) (2.5 mg - 0.5 mg) 3 ml Nebulizer once Route: Nebulizer; lg3 05:37 Follow up: Response: No adverse reaction; Marked relief of symptoms lg3 08:53 Drug: Piperacillin-Tazobactam IVPB 3.375 grams IVPB once over 60 mins; (mix in NS 100 ph mL) Route: IVPB; Infused Over: 60 mins; Site: right antecubital; 10:00 Follow up: Response: No adverse reaction; IV Status: Completed infusion ph 08:53 Drug: NS 0.9% IV 1000 ml IV at 1 bolus Per protocol; 1000 mL bolus Route: IV; Rate: 1 ph bolus; Site: right antecubital; 10:00 Follow up: Response: No adverse reaction; IV Status: Completed infusion; IV Intake: ph 1000ml Disposition Summary: 12/09/23 07:00 Hospitalization Ordered Notes: Hospitalization Status: Inpatient Admission rt Provider: Fahad Harp rt Condition: Stable rt Problem: new rt Symptoms: have improved rt Bed/Room Type: Standard rt Location: Telemetry/MedSurg (Inpatient)(12/09/23 15:22) bd Room Assignment: 201(12/09/23 15:22) bd Diagnosis - Colitis rt - Sepsis rt Forms: - Medication Reconciliation Form rt - SBAR form rt - Leadership Thank You Letter rt Signatures: Dispatcher [employer] EDMS JackelinJyoti south bd Matilde Soni RN RN Apurva Liang RN RN ph Able, April, RN RN lg3 You Andrade MD MD rt Corrections: (The following items were deleted from the chart) 02:59 02:59 Abdomen Pelvis W Con+CT.RAD.BRZ ordered. EDMS EDMS 06:58 06:58 BLOOD CULTURE*+BA.LAB.BRZ ordered. EDMS EDMS 06:58 06:58 LACTATE+C.LAB.BRZ ordered. EDMS EDMS 06:58 06:58 PROTIME (+INR)+COAG.LAB.BRZ ordered. EDMS EDMS 06:58 06:58 PTT, ACTIVATED+COAG.LAB.BRZ ordered. EDMS EDMS 08:57 07:00 Telemetry/MedSurg (Inpatient) rt bd 08:57 07:00 rt bd 15:22 08:57 [facility] ER HOLD bd bd 15:22 08:57 ERHOLD- bd bd
[2023-12-09] MEDS ORDERED: NA CHLORIDE 0.9% 100 ML ONE (07:27)
[2023-12-09] MEDS ORDERED: PIPERACIL/TAZO 3.375 GM VIAL IV ONE (07:28)
[2023-12-09] MEDS ORDERED: ONDANSETRON 4 MG/2 ML VIAL IV PRN (08:44)
[2023-12-09] MEDS ORDERED: ALBUTEROL 2.5 MG/3 ML NEB SOL NEB PRN ×2 (08:44→16:47)
[2023-12-09] MEDS ORDERED: SODIUM CHLORIDE 0.9% 10ML INJ IV PRN (08:44)
--- NOTE | 2023-12-09 08:54 | P.HP ---
Certification for Inpatient Patient admitted to: Inpatient With expected LOS: >2 Midnights Patient will require the following post-hospital care: None Practitioner: I am a practitioner with admitting privileges, knowledge of patient current condition, hospital course, and medical plan of care. Services: Services provided to patient in accordance with Admission requirements found in Title 42 Section 412.3 of the Code of Federal Regulations Patient History Date of Service: 12/09/23 Reason for admission: Acute colitis History of Present Illness: Ana Roberson is a 62 year old female with Pmhx significant for asthma presents to the ED with chief complaint of stabbing abdominal pain, N/V/D, weakness, and headache. 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 She reports not having an episode like this in the past. She smokes half a pack a day denies marijuana and Ozempic use. Blood cells 12,000, potassium 3.3, magnesium 1.9, lipase 30. Initial vitals BP 113 / 73; Pulse 105; Resp 22; Pulse Ox 92%, Temp 99.2(O) CT abdomen pelvis with contrast reports " Diffuse colon wall thickening/edema consistent with colitis" Ana will be admitted to hospitalist service for further evaluation and treatment of Acute colitis. Allergies codeine Allergy (Verified 12/09/23 14:05) Hives/Rash Home Medications: Albuterol Sulfate [Proair Respiclick] 90 mcg IH Q6HR 12/09/23 Oxybutynin Chloride [Oxybutynin Chloride ER] 10 mg PO DAILY 12/09/23 - Past Medical/Surgical History -: Asthma -: Appendectomy -: Cholecystectomy - Family History Family History: Reviewed- Non-Contributory - Social History Smoking Status: Current every day smoker (1/2 pack daily) Alcohol use: No CD- Drugs: No Review of Systems General: Weakness Gastrointestinal: Nausea, Vomiting, Abdominal Pain, Diarrhea Physical Examination - Physical Exam General: Alert, In no apparent distress, Oriented x3 HEENT: Atraumatic, Normocephalic, PERRLA Neck: Supple, 2+ carotid pulse no bruit, JVD not distended Respiratory: Clear to auscultation bilaterally, Normal air movement Cardiovascular: Normal pulses, Regular rate/rhythm, Normal S1 S2 Capillary refill: <2 Seconds Gastrointestinal: Normal bowel sounds, Soft and benign Musculoskeletal: No clubbing Neurological: Normal speech, Normal tone - Studies Laboratory Data (last 24 hrs) 12/09/23 12/09/23 03:07 03:07 WBC 12.00 H Hgb 14.2 Hct 42.0 Plt Count 241 Sodium 135 L Potassium 3.3 L BUN 13 Creatinine 0.84 Glucose 121 H Total Bilirubin 0.6 AST 13 L ALT 21 Alkaline Phosphatase 70 Lipase 30 Assessment and Plan - Plan Assessment and plan Acute colitis Leukocytosis Dehydration secondary to nausea, vomiting, diarrhea -WBC 12 -Clear liquid, advance as tolerated -C. difficile ordered -IV fluids -Cipro/flagyl -Continuous telemetry for colon Monitoring -Protonix twice daily, Carafate, probiotics daily Hyperglycemia -Serum glucose 121 -Monitor in the a.m. Hypokalemia -Potassium 3.3 -Monitor replace as needed History of asthma -Continue home medication DVT PPx heparin Full code LOS 2 days Discharge Plan: Home Plan to discharge in: 48 Hours - Advance Directives Does patient have a Living Will: No Does patient have a Durable POA for Healthcare: No
[2023-12-09] MEDS: HEPARIN 5000 UNIT/ML 1 ML VIAL SQ SCH (09:00)
[2023-12-09] MEDS: SUCRALFATE 1GM/10ML UCUP FT SCH (09:00)
[2023-12-09] MEDS: LACTOBACILLUS/ACIDOPHILUS TAB PO SCH (09:00)
[2023-12-09] MEDS: PANTOPRAZOLE 40 MG INJ IVP SCH (09:00)
[2023-12-09] MEDS: NA CHLORIDE 0.9% 1,000 ML IV SCH (09:00)
[2023-12-09 09:15] LABS: PT Prothrombin Time 12.5 SECONDS (9.4-12.5); Protime INR 1.12
[2023-12-09 09:16] LABS: PTT, Activated Partial Thromb 25.3 SECONDS (24.3-36.9)
[2023-12-09] MEDS ORDERED: HEPARIN 5000 UNIT/ML 1 ML VIAL ONE (11:08)
[2023-12-09] MEDS ORDERED: PANTOPRAZOLE 40 MG INJ ONE (11:08)
[2023-12-09 12:29] VITALS: BMI 28.1
[2023-12-09] MEDS ORDERED: SUCRALFATE 1GM/10ML UCUP ONE (15:36)
[2023-12-09] MEDS ORDERED: ALBUTEROL INHALER 200 PUFF/6.7 GM IH PRN ×2 (16:50→17:03)
[2023-12-09] MEDS: METRONIDAZOLE 500mg IVPB 500 MG/100 ML BAG IV SCH (16:58)
[2023-12-09] MEDS ORDERED: HOME MED 1 EA UNK (Albuterol Sulfate [Proair Respiclick] 90 MCG Aer.Pow.Ba) IH SCH (18:00)
[2023-12-09] MEDS: INFLUENZA VACCINE (for 6+ mo) 0.5 ML DOSE IMVAC ONE (18:00)
[2023-12-09] MEDS: Ciprofloxacin 200mg IV 400 MG/200 ML IV.SOLN. IV SCH (20:49)
[2023-12-09] MEDS: KCL 20 MEQ/100 mL IVPB 20 MEQ/100 ML BAG IV SCH (20:49)
[2023-12-10 04:13] LABS: C.diff Antigen/Toxin Ag neg : Tox neg (NEG : NEG); CDIFF INTERNAL NEG CONTROL White Background (WHITE BKGD); STOOL CONSISTENCY Liquid/Semi-Solid
[2023-12-10 04:44] LABS: Absolute Eosinophils 0.3 K/uL (0-0.5); Absolute Lymphocytes (CBC) 1.7 K/uL (0.7-4.9); Absolute Monocytes 0.9 K/uL (0.1-1.3); Basophils % 0.1 % (0-1.3); Eosinophils % 3.3 % (0-4.4); Hematocrit 41.3 % (36.0-45.0); Hemoglobin 13.6 g/dL (12.0-15.0); Lymphocytes % 18.5 % (15.3-44.8); MCH 31.4 pg (27.0-35.0); MCHC 32.9 g/dL (32.0-36.0); MCV 95.4 fL (80-100); MPV 7.8 fL (7.6-11.3); Monocytes % 10.6 % (3.3-12.3); Neutrophils % 67.5 % (41.7-73.7); Platelets 215 thou/uL (152-406); RBC Red Blood Cell Count 4.33 M/uL (3.86-4.86)
[2023-12-10 05:15] LABS: Anion Gap 6.9 mEq/L (5.0-15.0); Magnesium 1.9 mg/dL (1.6-2.4); Phosphorus 2.9 mg/dL (2.5-4.9); Potassium 3.9 mEq/L (3.5-5.1)
[2023-12-10] MEDS: POTASSIUM CL SA 10 MEQ TAB PO ONE (08:10)
[2023-12-10] MEDS ORDERED: HOME MED 1 EA UNK (Oxybutynin Chloride [Oxybutynin Chloride Er] 10 MG Tab.Er.24) PO SCH (09:00)
[2023-12-10] MEDS ORDERED: OXYBUTYNIN ER 5 MG TAB PO SCH (09:00)
[2023-12-10 10:13] VITALS: O2SAT 94
[2023-12-10] MEDS: ACETAMINOPHEN 325 MG TABLET PO ONE (10:28)
--- NOTE | 2023-12-10 13:00 | EKG ---
Test Date: 2023-12-09 Test Time: 07:18:16 Call Center Representative: [place] MEASUREMENT RESULTS: Intervals: Rate: 95 [place]: 178 QRSD: 88 QT: 372 QTc: 467 [place]: P: 78 [place]: 178 QRS: 57 T: 79 INTERPRETIVE STATEMENTS: Normal sinus rhythm Normal ECG Compared to ECG 05/02/2007 11:36:53 No significant changes Electronically Signed On 12-10-23 12:55:18 CDT by John Paul Siegel
[2023-12-10 13:56] VITALS: BP 96/57; TEMP 98.5
[2023-12-10] MEDS ORDERED: metroNIDAZOLE 500 MG TABLET PO SCH (14:00)
[2023-12-10] MEDS ORDERED: CIPROFLOXACIN HCL 500 MG TAB PO SCH (17:00)
--- NOTE | 2023-12-10 19:24 | P.DS ---
Admission Date: 12/09/23 Discharge Date: 12/10/23 Disposition: ROUTINE DISCHARGE Discharge Condition: GOOD Reason for Admission: Acute colitis Brief History of Present Illness: Diagnosis SIRS criteria 2/2 Acute colitis Leukocytosis Dehydration secondary to nausea, vomiting, diarrhea Hyperglycemia Hypokalemia History of asthma HPI 12/09/2023 Ana Roberson is a 62 year old female with Pmhx significant for asthma presents to the ED with chief complaint of stabbing abdominal pain, N/V/D, weakness, and headache. 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 She reports not having an episode like this in the past. She smokes half a pack a day denies marijuana and Ozempic use. Blood cells 12,000, potassium 3.3, magnesium 1.9, lipase 30. Initial vitals BP 113 / 73; Pulse 105; Resp 22; Pulse Ox 92%, Temp 99.2(O) CT abdomen pelvis with contrast reports " Diffuse colon wall thickening/edema consistent with colitis" Ana will be admitted to hospitalist service for further evaluation and treatment of Acute colitis. Hospital Course: Ana Zamora is a pleasant 63 year old female with a past medical history significant for significant for asthma who was admitted to the [facility] on 12/09/23 for SIRS 2/2 acute Colitis. Ana Zamora presented with abdominal pain, nausea, vomiting, diarrhea, headache, and weakness. SIRS criteria of HR 104 and resp 22, CT abdomen/pelvis with contrast reports "diffuse colon wall thickening/edema consistent with colitis." After treatment with IV antibotics, IVF, and CLD she was feeling better but reported some diarrhea. CDiff was negative and she tolerated FLD. She is ambulating independently, and improved faster than anticipated. On 12/10/23, Ana was seen on morning rounds and deemed medically stable for discharge. Ana was discharged with instructions to schedule follow-up appointments with PCP. Ana was provided prescriptions for Cipro, Flagyl, Protonix, Carafate, and Lactinex. Physical Exam General: Alert and Oriented x3, NAD HEENT: Atraumatic, Normocephalic, PERRLA Neck: Supple, 2+ carotid pulse no bruit, JVD not distended Respiratory: Clear to auscultation bilaterally, Normal air movement, on RA Cardiovascular: Normal pulses, RRR, Normal S1 S2 Capillary refill: <2 Seconds Gastrointestinal: Normal bowel sounds, Soft and benign on palpation Musculoskeletal: No clubbing Neurological: Normal speech, Normal tone Vital Signs/Physical Exam: Temp Pulse Resp BP Pulse Ox 98.5 F 78 23 H 96/57 L 92 12/10/23 12:00 12/10/23 12:00 12/10/23 12:00 12/10/23 12:00 12/10/23 12:00 Laboratory Data at Discharge: WBC 8.90 thou/uL (4.3-10.9) 12/10/23 04:19 Hgb 13.6 g/dL (12.0-15.0) 12/10/23 04:19 Hct 41.3 % (36.0-45.0) 12/10/23 04:19 Plt Count 215 thou/uL (152-406) 12/10/23 04:19 PT 12.5 SECONDS (9.4-12.5) 12/09/23 08:47 INR 1.12 12/09/23 08:47 APTT 25.3 SECONDS (24.3-36.9) 12/09/23 08:47 Sodium 140 mEq/L (136-145) D 12/10/23 04:19 Potassium 3.8 mEq/L (3.5-5.1) 12/10/23 13:26 BUN 6 mg/dL (7-18) L 12/10/23 04:19 Creatinine 0.70 mg/dL (0.55-1.02) 12/10/23 04:19 Glucose 99 mg/dL (74-106) 12/10/23 04:19 Phosphorus 2.9 mg/dL (2.5-4.9) 12/10/23 04:19 Magnesium 1.9 mg/dL (1.6-2.4) 12/10/23 04:19 Total Bilirubin 0.6 mg/dL (0.2-1.0) 12/09/23 03:07 AST 13 U/L (15-37) L 12/09/23 03:07 ALT 21 U/L (13-56) 12/09/23 03:07 Alkaline Phosphatase 70 U/L (45-117) 12/09/23 03:07 Triglycerides 122 mg/dL (<150) 12/10/23 04:19 Cholesterol 150 mg/dL (<200) 12/10/23 04:19 HDL Cholesterol 49 mg/dL (40-60) 12/10/23 04:19 Cholesterol/HDL Ratio 3.06 12/10/23 04:19 Lipase 30 U/L (13-75) 12/09/23 03:07 Home Medications: Albuterol Sulfate [Proair Respiclick] 90 mcg IH Q6HR 12/09/23 Oxybutynin Chloride [Oxybutynin Chloride ER] 10 mg PO DAILY 12/09/23 Acidophilus/Bulgaricus [Lactinex Packet] 1 each PO DAILY 30 Days #30 packet 12/10/23 Ciprofloxacin HCl [Cipro 500 MG Tablet] 500 mg PO BID 7 Days #14 tab 12/10/23 Pantoprazole Sodium [Protonix] 40 mg PO DAILY 30 Days #30 tab 12/10/23 Sucralfate [Carafate*] 10 ml FT QID 7 Days #280 ml 12/10/23 metroNIDAZOLE [Flagyl*] 500 mg PO TID 7 Days #21 tab 12/10/23 New Medications: Sucralfate [Carafate*] 10 ml FT QID 7 Days #280 ml Ciprofloxacin HCl [Cipro 500 MG Tablet] 500 mg PO BID 7 Days #14 tab metroNIDAZOLE [Flagyl*] 500 mg PO TID 7 Days #21 tab Acidophilus/Bulgaricus [Lactinex Packet] 1 each PO DAILY 30 Days #30 packet Pantoprazole Sodium [Protonix] 40 mg PO DAILY 30 Days #30 tab Physician Discharge Instructions: 1. Please call and schedule a follow-up appointment with your PCP in 3-5 days - Please follow-up with your PCP for medication refills/adjustments 2. Please call and schedule a follow-up appointment with Gastroenterology in one week 3. Continue soft GI diet 4. Diarrhea persists may try Imodium [id number] as directed on the package -C. difficile is negative 5. No activity restrictions 6. Return to the ED if symptoms worsen New medications Probiotic 1 packet daily x 30 days Cipro 500 mg by mouth twice a day x 7 days Flagyl 500 mg by mouth twice a day x 7 days -May upset your stomach Protonix 40 mg p.o. daily Carafate 10 mL 4 times a day with meals and bedtime x 7 days Diet: Soft GI Activity: Ad alisa Followup: Haja Mtz DO [Primary Care Provider] - 1-2 Weeks
== END 2023-12-10 14:27 | disposition home or self-care (01) ==
LOC: ER 02:10 → INTOOBSV 08:44 → ERHOLD 08:44 → 2ND 15:55
PROVIDERS: ADMIT Internal Medicine; ATTEND Internal Medicine
DX: K52.9 Noninfective gastroenteritis and colitis, unspecified (principal); D72.829 Elevated white blood cell count, unspecified; E86.0 Dehydration; R73.9 Hyperglycemia, unspecified; E87.6 Hypokalemia; J45.909 Unspecified asthma, uncomplicated; F17.210 Nicotine dependence, cigarettes, uncomplicated; Z88.5 Allergy status to narcotic agent
CPT/HCPCS: 93005; 87040 ×2; 85025 ×2; 81001; 80048; 36415 ×2; 83735 ×2; 84100; 84132; 85610; 80061; 83605; 85730; 87324; 83690; 80053; 74177; Q9967; J1644 ×4; Q2035; J3480; J2543; J7613; J7644; J2470 ×3; J0744 ×2; J2405; J7030 ×4; 96361; 96365; 96375; 99285; G0378